=== PATIENT | female | born 1990 | race Caucasian/White ===

== ENCOUNTER 2018-08-31 20:05 | Emergency (ER) | payer OTHER ==
[~2018-08-31] VITALS: Ht 157.5 cm; Wt 63.6 kg
[2018-08-31 22:29] LABS: AMPHET/METH SCREEN,URINE POSITIVE (NEGATIVE); BARBITURATE SCREEN, URINE NEGATIVE (NEGATIVE); BENZODIAZEPINES SCREEN,URINE NEGATIVE (NEGATIVE); CANNABINOID SCREEN,URINE NEGATIVE (NEGATIVE); COCAINE SCREEN,URINE NEGATIVE (NEGATIVE); METHADONE SCREEN, URINE NEGATIVE (NEGATIVE); OPIATE SCREEN,URINE POSITIVE (NEGATIVE)
[2018-08-31 22:33] LABS: PHENCYCLIDINE SCREEN,URINE NEGATIVE (NEGATIVE)
[2018-08-31] MEDS ORDERED: LORazepam 2 MG TABLET PO ONE (23:15)
[2018-08-31] MEDS ORDERED: SODIUM CHLORIDE 0.9% 1,000 ML IV ONE (23:15)
[2018-08-31] MEDS ORDERED: ONDANSETRON HCL 4 MG TABLET PO ONE (23:15)
[2018-09-01 00:02] VITALS: BP 127/82
== END 2018-09-01 00:29 | disposition home or self-care (01) ==
LOC: EMS 20:07
DX: F41.9 Anxiety disorder, unspecified (principal); F11.90 Opioid use, unspecified, uncomplicated; Z88.5 Allergy status to narcotic agent
CPT/HCPCS: 80307; 84703; 99283; J7030; Q0162

== ENCOUNTER 2018-09-02 03:43 | Emergency (ER) | payer OTHER ==
[~2018-09-02] VITALS: Ht 157.5 cm; Wt 63.6 kg
[2018-09-02] MEDS ORDERED: LORazepam 1 MG TABLET PO ONE (04:15)
[2018-09-02 04:40] VITALS: BP 117/69
== END 2018-09-02 04:51 | disposition home or self-care (01) ==
LOC: EMS 03:43
DX: F41.9 Anxiety disorder, unspecified (principal); F19.10 Other psychoactive substance abuse, uncomplicated; R11.0 Nausea; F15.90 Other stimulant use, unspecified, uncomplicated; F11.90 Opioid use, unspecified, uncomplicated; Z88.5 Allergy status to narcotic agent

== ENCOUNTER 2018-09-02 18:59 | Emergency (ER) | payer OTHER ==
[~2018-09-02] VITALS: Ht 157.5 cm; Wt 63.6 kg
[2018-09-02] MEDS ORDERED: CloNIDine HCL 0.1 MG TABLET PO ONE (21:15)
[2018-09-02] MEDS ORDERED: ACETAMINOPHEN 500 MG TABLET PO ONE (21:15)
[2018-09-02 22:04] VITALS: BP 152/115
[2018-09-02] MEDS ORDERED: ChlordiazePOXIDE HCL 25 MG CAPSULE PO ONE (22:30)
== END 2018-09-02 22:52 | disposition home or self-care (01) ==
LOC: EMS 19:02
DX: F41.9 Anxiety disorder, unspecified (principal); F11.23 Opioid dependence with withdrawal; F15.90 Other stimulant use, unspecified, uncomplicated; F17.210 Nicotine dependence, cigarettes, uncomplicated; Z88.5 Allergy status to narcotic agent